=== PATIENT | male | born 1935 | race Caucasian/White ===

== ENCOUNTER 2016-08-02 07:55 | Day surgery (SDC) | payer MEDICARE, BC ==
[~2016-08-02 07:55] MED LIST: PROPOFOL 500 MG/50 ML EMU IV ONE
[2016-08-02 09:49] VITALS: BP 130/73; PULSE 58; RESP 16; TEMP 96.6; O2SAT 90
== END 2016-08-02 09:51 | disposition home or self-care (01) | DRG 951 ==
LOC: SURG 07:55
PROVIDERS: ATTEND Surgery
DX: Z12.11 Encounter for screening for malignant neoplasm of colon (principal); K92.89 Other specified diseases of the digestive system
CPT/HCPCS: G0121; J2704